=== PATIENT | female | born 1940 | race Caucasian/White ===

== ENCOUNTER 2017-04-27 09:47 | Day surgery (SDC) | payer MEDICARE, BC ==
[~2017-04-27 09:47] MED LIST: Lactated Ringers 1,000 ML IV SCH
[2017-04-27] MEDS ORDERED: fentaNYL 100 MCG/2 ML SDV ONE (11:40)
[2017-04-27] MEDS ORDERED: Propofol 200 MG/20 ML SDV ONE (11:40)
--- NOTE | 2017-04-27 19:48 | OR ---
PREOPERATIVE DIAGNOSIS: Screening colonoscopy. POSTOPERATIVE DIAGNOSIS: Mild sigmoid diverticulosis, otherwise, normal exam. PROCEDURE PROPOSED: Total flexible colonoscopy. PROCEDURE DONE: Total flexible colonoscopy. INDICATIONS: This is a 77-year-old female who comes in for screening colonoscopy. Her last examination was about 10 years ago. She denies any symptomatology, and she has a negative family history. TECHNIQUE: The patient was brought to the endoscopy suite and placed in left lateral decubitus position. She was sedated per CHIEF INFORMATION SECURITY OFFICER with propofol. The flexible video colonoscope was then passed transanally and under visualization advanced to the cecum. Examination revealed a normal cecal area as well as ascending and transverse colon. Descending colon was normal. The sigmoid colon revealed mild diverticulosis, and the rectum was normal. There were no signs of any polyps, colitis, or other abnormalities and the scope was then withdrawn. The patient tolerated the procedure well. FINAL IMPRESSION: Sigmoid diverticulosis, otherwise, normal exam. PLAN: The patient is reassured. I felt at her age, she does not need any further screening colonoscopies. SCM: 04/27/2017 13:02:15 MODL: 04/27/2017 19:38:32 /[id number]
== END 2017-04-27 14:46 | disposition home or self-care (01) ==
LOC: VM.SDS 09:47
PROVIDERS: ATTEND Surgery
DX: Z12.11 Encounter for screening for malignant neoplasm of colon (principal); K57.30 Diverticulosis of large intestine without perforation or abscess without bleeding; E78.00 Pure hypercholesterolemia, unspecified; M54.17 Radiculopathy, lumbosacral region
CPT/HCPCS: 00812; J2704; J3010; J7120

== ENCOUNTER 2019-10-05 08:54 | Day surgery (SDC) | payer MEDICARE, BC, OTHER ==
[2019-10-05] MEDS ORDERED: Propofol 200 MG/20 ML SDV ONE (09:19)
[2019-10-05] MEDS ORDERED: fentaNYL 100 MCG/2 ML SDV ONE (09:19)
--- NOTE | 2019-10-06 08:40 | OR ---
PREOPERATIVE DIAGNOSIS: Dysphagia. POSTOPERATIVE DIAGNOSIS: Dysphagia. PROCEDURE PERFORMED: Esophagogastroduodenoscopy with dilation of distal esophagus. ANESTHESIA: MAC anesthesia. COMPLICATIONS: None. BLOOD LOSS: Minimal. FINDINGS: 1. There is mild narrowing of the distal esophagus. This is dilated to 19 mm. 2. There was some prominent tissue at the GE junction, which did not appear gross, did not appear fairly abnormal, but was a bit more problem than is typical. Given her symptoms, I took a couple biopsies of this. 3. The rest of the esophagus was normal in appearance. Random biopsies were taken to evaluate for eosinophilic esophagitis. INDICATIONS FOR PROCEDURE: Sara Cancino is a 79-year-old female who for about 3 years has had intermittent dysphagia where food gets stuck in her lower chest. This happens particularly with meat if she takes a large bite and does not chew well. If she is careful about taking smaller bites and chewing thoroughly, she does not have symptoms. She denies reflux. When the food gets stuck, she has to regurgitate it and then she feels better. She has never had a prior EGD. DETAILS OF PROCEDURE: After informed consent was obtained, the patient was brought to the procedure room. She was placed in left lateral decubitus position. MAC anesthesia was induced by Anesthesia colleagues and then a bite block was placed. The endoscope was introduced into the mouth, passed through the upper esophageal sphincter down the esophagus into the stomach. We did not have trouble passing the scope through the esophagus, but there was perhaps mild narrowing of the distal esophagus. The pylorus was intubated and the duodenum was examined. The first and second portions of the duodenum were unremarkable. The antrum and body of the stomach were unremarkable. A retroflexed view showed Hill grade 2 hiatus without any abnormalities in the proximal portion of the stomach. We then withdrew the scope back into the esophagus. The distal esophagus was perhaps mildly narrowed, but there was not a clear Schatzki ring. We did not see anything look like a malignancy, but there was some prominent tissue at the GE junction which was biopsied. We then used a balloon dilator to dilate the distal esophagus to 19 mm. There was a small mucosal break noted without any evidence of full-thickness tear. The colonoscope was then withdrawn. Esophagus was examined, which was unremarkable. Random biopsies were taken to evaluate for eosinophilic esophagitis. We then desufflated the stomach. The patient tolerated the procedure well, was awoken from MAC anesthesia by Anesthesia colleagues without incident. 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 This may help direct future therapy of dysphagia resolves and then recurrs. -Esophageal eosinophilia is less than what is typically see in eosinophilic esophagitis. More consistent with reflux. Would consider starting a PPI (if not already one). -The other consideration is esophageal dysfunction as her distal narrowing was not as pronounced as is seen in some patients with dysphagia. If she had no improvement after dilation could consider esophageal manometry or GI consultation. RKM: 10/05/2019 11:43:46 MODL: 10/05/2019 15:55:29 /[id number] ADAN
--- NOTE | 2019-10-10 10:25 | LETTER ---
10/07/2019 RE: SARA HORNER : 1940 Sara Horner [id number] [place] [address] [place] [id number] Dear Ms. Horner: I am writing to inform you of the pathology results of your recent upper endoscopy. We took some biopsies of your esophagus, all of which were negative for any cancer cells. You did have some cells called eosinophils within your esophagus. This is a cell that sometimes is involved in a condition called eosinophilic esophagitis, which can cause some difficulty swallowing. However, you did not have as many eosinophiles as is typically seen in patients with the eosinophilic esophagitis. The amount you had is more consistent with just gastroesophageal reflux disease. If you are not already on an antacid medication, I recommend you discuss the benefits of starting 1 with your primary care physician. If you had resolution of your trouble swallowing after we dilated your esophagus, we would expect that that was the source of your symptoms. However, if you do not feel any better, it is also possible your esophagus muscle does not function as well as it should. You can discuss further workup with a test to measure how well your esophagus works or a consultation with the GI expert with your primary care provider. Please give me a call if you have any questions about any of this. Warmest regards,
== END 2019-10-05 12:54 | disposition home or self-care (01) ==
LOC: VM.SDS 08:54
PROVIDERS: ATTEND Student in an Organized Health Care Education/Training Program
DX: K22.2 Esophageal obstruction (principal); K20.0 Eosinophilic esophagitis; I51.89 Other ill-defined heart diseases; M81.0 Age-related osteoporosis without current pathological fracture; E66.9 Obesity, unspecified; I83.893 Varicose veins of bilateral lower extremities with other complications; E78.5 Hyperlipidemia, unspecified; K44.9 Diaphragmatic hernia without obstruction or gangrene; E78.00 Pure hypercholesterolemia, unspecified; D64.9 Anemia, unspecified; G25.81 Restless legs syndrome; F51.01 Primary insomnia; K21.0 Gastro-esophageal reflux disease with esophagitis; N81.11 Cystocele, midline; I45.10 Unspecified right bundle-branch block; K57.30 Diverticulosis of large intestine without perforation or abscess without bleeding; S39.012D Strain of muscle, fascia and tendon of lower back, subsequent encounter; N39.46 Mixed incontinence; J30.1 Allergic rhinitis due to pollen; M54.17 Radiculopathy, lumbosacral region; K59.01 Slow transit constipation; Z01.812 Encounter for preprocedural laboratory examination; Z20.828 Contact with and (suspected) exposure to other viral communicable diseases; Z79.899 Other long term (current) drug therapy; Z68.36 Body mass index [BMI] 36.0-36.9, adult; X58.XXXD Exposure to other specified factors, subsequent encounter
CPT/HCPCS: 00731; 43239; 43249; 88305; C1726; J2704; J3010; J7120; U0002

== ENCOUNTER 2020-09-24 10:56 | Emergency (ER) | payer MEDICARE, BC ==
--- NOTE | 2020-09-24 11:12 | EDM.PDOC ---
ED HPI GENERAL MEDICAL PROBLEM - General Stated Complaint: syncope, neck pain Time Seen by Provider: 09/24/20 11:00 Source of Information: Reports: Patient, EMS, EMS Notes Reviewed History Limitations: Reports: No Limitations - History of Present Illness INITIAL COMMENTS - FREE TEXT/NARRATIVE: Patient was at home getting a perm. She had been sitting for a long period of time and arose to check on her food cooking. She states she felt fine and made it part ways across the kitchen and suddenly passed out. She denied any dizziness of chest pain prior. She was with other people and they witnessed her hitting her head on the counter. She was unconscious and slumped over for 1-2 minutes. She came around and became lucid quickly. No loss of urine. Complained of neck pain. EMS was called. Collar applied, alert and orientate x 4, blood glucose >100. Not on blood thinners. arrives alert and moving al extremities in a c collar. History of syncope in the past. Onset: Today, Sudden Onset Time: 10:15 Duration: Minutes:, Resolved Prior to Arrival Location: Reports: Head, Neck Improves with: Reports: None Worsens with: Reports: Movement (c collar in place) Associated Symptoms: Reports: Syncope - Related Data Allergies Allergy/AdvReac Type Severity Reaction Status Date / Time No Known Allergies Allergy Verified 05/10/18 10:50 Home Meds: Home Meds Calcium Carbonate/Vitamin D3 [Caltrate 600 + D Soft Chew Tab] 1 tab PO DAILY 04/24/17 [History] Docusate Sodium [Colace] 100 mg PO BID 04/24/17 [History] Fish Oil/[place]-3 Fatty Acids [Fish Oil 1,000 MG] 1,000 mg PO DAILY 04/24/17 [History] Flaxseed 3 tsp PO DAILY 04/24/17 [History] Gabapentin [Neurontin] 600 mg PO BID 04/24/17 [History] Ibuprofen [Motrin] 600 mg PO Q6H 04/24/17 [History] Multivitamin [Multivitamins] 1 tab PO DAILY 04/24/17 [History] Simvastatin [Zocor] 10 mg PO BEDTIME 04/24/17 [History] Fluticasone Propionate [Flonase] 1 spray NS BID PRN 09/14/19 [History] Oxybutynin Chloride [Ditropan Xl] 10 mg PO DAILY 09/14/19 [History] Cyclobenzaprine [Flexeril] 5 mg PO Q8H PRN #15 tab 09/24/20 [Rx] Hydrocodone/Acetaminophen [HYDROcodone-Acetaminophen 5-325 MG] 1 each PO Q6HR PRN #15 tab 09/24/20 [Rx] Past Medical History HEENT History: Reports: Allergic Rhinitis, Cataract Cardiovascular History: Reports: High Cholesterol, Other (See Below) Other Cardiovascular History: RBBB. bilat LE vericose veins Respiratory History: Reports: None Gastrointestinal History: Reports: Chronic Constipation, Diverticulosis, GERD Genitourinary History: Reports: Other (See Below) Other Genitourinary History: cystocele Musculoskeletal History: Reports: Osteoporosis, Other (See Below) Other Musculoskeletal History: pelvic and thigh pain. low back strain. mallet deformity of second rt finger. L3 compression fx. bilat SI pain. myalgia Neurological History: Reports: Other (See Below) Other Neuro History: rt lumbosacral rediculopathy. RLS. balance problems Psychiatric History: Reports: Other (See Below) Other Psychiatric History: insomnia Endocrine/Metabolic History: Reports: Obesity/BMI 30+ Hematologic History: Reports: Anemia Immunologic History: Reports: None Oncologic (Cancer) History: Reports: None Dermatologic History: Reports: None - Past Surgical History GI Surgical History: Reports: Colonoscopy Female Surgical History: Reports: Hysterectomy, LEEP, Tubal Ligation Social & Family History - Family History Cardiac: Reports: Hypertension : Reports: Other (See Below) Other Family History: prostate cancer Musculoskeletal: Reports: Osteoporosis Neurological: Reports: Alzheimers Disease Psychiatric: Reports: Depression Oncologic: Reports: Prostate - Caffeine Use Caffeine Use: Reports: Coffee - Recreational Drug Use Recreational Drug Use: No Drug Use in Last 12 Months: No - Living Situation & Occupation Living situation: Reports: , with Spouse 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 Good social network.) ED ROS GENERAL - Review of Systems Review Of Systems: See Below Constitutional: Reports: No Symptoms. Denies: Fever, Chills, Malaise, Fatigue HEENT: Reports: No Symptoms. Denies: Dental Pain, Eye Pain, Nosebleed Respiratory: Reports: No Symptoms. Denies: Shortness of Breath, Pleuritic Chest Pain, Cough Cardiovascular: Reports: Syncope. Denies: Chest Pain, Dyspnea on Exertion, Lightheadedness Endocrine: Reports: No Symptoms GI/Abdominal: Reports: No Symptoms. Denies: Abdominal Pain, Diarrhea, Flatus, Melena, Nausea, Vomiting : Reports: No Symptoms. Denies: Dysuria, Frequency Musculoskeletal: Reports: Neck Pain Skin: Reports: No Symptoms Neurological: Reports: Headache, Syncope. Denies: Confusion, Dizziness, Numbness, Tremors Psychiatric: Reports: No Symptoms - Physical Exam Exam: See Below Exam Limited By: No Limitations General Appearance: Alert, WD/WN, No Apparent Distress Eye Exam: Bilateral Eye: EOMI, Normal Inspection, PERRL Ears: Normal External Exam, Normal Canal, Normal TMs Nose: Normal Inspection, Normal Mucosa, No Blood Throat/Mouth: Normal Inspection, Normal Lips, Normal Teeth, Normal Oropharynx, Normal Voice, No Airway Compromise Head Exam: Normocephalic, Other (tenderness to palpation in the occipital area, limited due to c collar, not removed prior to CT) Neck: Tender Lateral, Tender Midline, Other (in c collar) Respiratory/Chest: No Respiratory Distress, Lungs Clear, Normal Breath Sounds, No Accessory Muscle Use, Chest Non-Tender Cardiovascular: Normal Peripheral Pulses, Regular Rate, Rhythm, No Edema, No Murmur GI/Abdominal: Normal Bowel Sounds, Soft, Non-Tender, No Organomegaly, No Mass (Female) Exam: Deferred Neuro Exam (Abbreviated): Alert, Oriented, CN II-XII Intact, Normal Cognition, No Motor/Sensory Deficits (normal ggrip strength bilateraly, negative pronator drift, normal finger to nose with eyes closed, normal TREVON, normal heel to bob, moves all extermities without deficit) Extremities: Normal Inspection, Normal Range of Motion, No Pedal Edema, Normal Capillary Refill Psychiatric: Normal Affect, Normal Mood Skin Exam: Warm #1 Interpretation EKG Date: 09/24/20 Time: 11:02 Rhythm: NSR [place]: Normal P-Wave: Present QRS: RBBB ST-T: Normal QT: Normal Course - Orders/Labs/Meds Orders: Active Orders 24 hr Category Date Time Status EKG Documentation Completion [RC] STAT Care 09/24/20 11:02 Active Labs: Laboratory Tests 09/24/20 09/24/20 Range/Units 11:14 11:14 WBC 5.1 (4.0-10.0) x10^3/uL RBC 4.26 (4.00-5.50) x10^6/uL Hgb 12.5 (12.0-16.0) g/dL Hct 38.3 (33.0-47.0) % MCV 89.9 (78.0-93.0) fL MCH 29.3 (26.0-32.0) pg MCHC 32.6 (32.0-36.0) g/dL RDW Coeff of Emiliano 14.4 (10.0-15.0) % Plt Count 155 (130-400) x10^3/uL Add Manual Diff Yes Neutrophils % (Manual) 69 (50-80) % Band Neutrophils % 3 (0-6) % Lymphocytes % (Manual) 15 L (25-50) % Monocytes % (Manual) 12 H (2-11) % Metamyelocytes % 1 H (0) % Platelet Estimate Adequate Sodium 141 (136-145) mmol/L Potassium 4.2 (3.5-5.1) mmol/L Chloride 105 (98-107) mmol/L Carbon Dioxide 29 (21-32) mmol/L Anion Gap 11.2 (5-15) mmol/L BUN 17 (7-18) mg/dL Creatinine 0.9 (0.55-1.02) mg/dL Est Cr Clr Drug Dosing TNP Estimated GFR (MDRD) > 60 Glucose 118 H (70-99) mg/dL Calcium 8.5 (8.5-10.1) mg/dL Corrected Calcium 9.3 (8.5-10.1) mg/dL Total Bilirubin 0.5 (0.2-1.0) mg/dL AST 16 (15-37) U/L ALT 21 (14-59) U/L Alkaline Phosphatase 80 (46-116) U/L Troponin I High Sens 5 (<=51) ng/L Total Protein 6.1 L (6.4-8.2) g/dL Albumin 3.0 L (3.4-5.0) g/dL Globulin 3.1 Albumin/Globulin Ratio 0.97 - Radiology Interpretation Free Text/Narrative:: ct head without any acute findings. CT neck without acute fracture or subluxation. 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 CT head and neck. EKG no acute change. Will check labs, has history of syncope. 09/24/20 12:28 c collar removed. Discussed vasovagal, versus arrythmia and need to follow up with holter monitoring. Can due with PCP. Discussed muscle stiffness and soreness. walked the hallways without problems. Departure - Departure Time of Disposition: 12:29 Disposition: Home, Self-Care 01 Condition: Good Clinical Impression: Syncope, Neck pain - Discharge Information *PRESCRIPTION DRUG MONITORING PROGRAM REVIEWED*: Not Applicable *COPY OF PRESCRIPTION DRUG MONITORING REPORT IN PATIENT NGOZI: Not Applicable Prescriptions: Cyclobenzaprine [Flexeril] 5 mg PO Q8H PRN #15 tab PRN Reason: Spasms Hydrocodone/Acetaminophen [HYDROcodone-Acetaminophen 5-325 MG] 1 each PO Q6HR PRN #15 tab PRN Reason: Pain Instructions: Syncope, [id number], Cervical Sprain, [id number] Additional Instructions: use the pain medication and muscle relaxer as needed. Heat, stretching and movement along with massage will help. These medications may cause constipation. Follow up with your PCP for possible holter monitoring as the passing out could be due to changing positions too quickly or heart rhythm problems. Take your time when you change positions from laying to sitting to standing. - My Orders Last 24 Hours: My Active Orders 09/24/20 11:02 EKG Documentation Completion [RC] STAT - Assessment/Plan Last 24 Hours: My Active Orders 09/24/20 11:02 EKG Documentation Completion [RC] STAT
[2020-09-24 11:42] LABS: CHLORIDE,CL 105 mmol/L (98-107); SODIUM,NA 141 mmol/L (136-145)
[2020-09-24 11:45] LABS: ANION GAP 11.2 mmol/L (5-15)
--- NOTE | 2020-09-24 12:17 | CT ---
[id number] CT/CT Head WO IV EXAM: CT Head WO IV CLINICAL DATA: FALL,NECK PAIN. COMPARISON STUDY: July 22, 2019. FINDINGS: No intracranial hemorrhage, extra-axial fluid collection, mass, or acute ischemia. Generalized parenchymal atrophy with scattered areas of nonspecific white matter disease, commonly seen as sequela of chronic microvascular ischemia. Soft tissues are unremarkable. Paranasal sinuses and mastoid air cells are essentially clear. IMPRESSION: No acute intracranial findings. Sunil Lazo DO 09/24/20 [id number] Thank you for allowing us to participate in the care of your patient.
--- NOTE | 2020-09-24 12:18 | CT ---
[id number] CT/CT Cervical Spine WO IV Exam: CT Cervical Spine WO IV CLINICAL DATA: FALL, NECK PAIN. COMPARISON: None. FINDINGS: No fracture or subluxation is seen. The C1-C2 articulation is unremarkable. The prevertebral soft tissues are within normal limits. Multilevel degenerative changes of the cervical spine including loss of disc space height, osteophytosis and facet arthropathy. Findings are most pronounced at C5-C6. IMPRESSION: NO ACUTE FRACTURE OR SUBLUXATION. Sunil Lazo DO 09/24/20 1230 Thank you for allowing us to participate in the care of your patient.
== END 2020-09-24 12:47 | disposition home or self-care (01) ==
LOC: VM.ED 10:56
DX: R55 Syncope and collapse (principal); M54.2 Cervicalgia
CPT/HCPCS: 36415; 70450; 72125; 80053; 84484; 85025; 93005; 93010; 99284

== ENCOUNTER 2020-09-24 15:53 | Inpatient (IN) | payer MEDICARE, BC ==
[2020-09-24] MEDS ORDERED: Iopamidol 755 Mg/ML 100 ML Bottle IVPUSH ONE (16:09)
--- NOTE | 2020-09-24 16:40 | EDM.PDOC ---
ED HPI GENERAL MEDICAL PROBLEM - General Chief Complaint: Cardiovascular Problem Stated Complaint: SYNCOPE Time Seen by Provider: 09/24/20 16:15 Source of Information: Reports: Patient History Limitations: Reports: No Limitations - History of Present Illness INITIAL COMMENTS - FREE TEXT/NARRATIVE: Patient returns to the Ed for another episode of syncope. Patient was seen earlier today for this and evaluated with head non contrast ct and neck ct along with labs. Patient had normal results, felt better and went home. while at home she changed positions and was near family, had another syncopal episode and they caught her. No seizure activity and no urinary incontinence. They called EMS. Patient declined transport at EMS arrival. Family was insistent. EMs did check a blood sugar and it was greater than 100. orthostatic blood pressures were 130 laying, 120 sitting and 70 standing. No change in heart rate with these vitals. Patient is otherwise feeling fine. Has had her covid 19 vaccines Onset: Today ( x 2) Duration: Minutes:, Resolved Prior to Arrival Treatments [employer]: Reports: EKG, IV/IO - Related Data Allergies Allergy/AdvReac Type Severity Reaction Status Date / Time No Known Allergies Allergy Verified 09/24/20 16:15 Home Meds: Home Meds Calcium Carbonate/Vitamin D3 [Caltrate 600 + D Soft Chew Tab] 1 tab PO DAILY 04/24/17 [History] Docusate Sodium [Colace] 100 mg PO BID 04/24/17 [History] Fish Oil/[place]-3 Fatty Acids [Fish Oil 1,000 MG] 1,000 mg PO DAILY 04/24/17 [History] Flaxseed 3 tsp PO DAILY 04/24/17 [History] Gabapentin [Neurontin] 600 mg PO BID 04/24/17 [History] Ibuprofen [Motrin] 600 mg PO Q6H 04/24/17 [History] Multivitamin [Multivitamins] 1 tab PO DAILY 04/24/17 [History] Simvastatin [Zocor] 10 mg PO BEDTIME 04/24/17 [History] Fluticasone Propionate [Flonase] 1 spray NS BID PRN 09/14/19 [History] Oxybutynin Chloride [Ditropan Xl] 10 mg PO DAILY 09/14/19 [History] Cyclobenzaprine [Flexeril] 5 mg PO Q8H PRN #15 tab 09/24/20 [Rx] Hydrocodone/Acetaminophen [HYDROcodone-Acetaminophen 5-325 MG] 1 each PO Q6HR PRN #15 tab 09/24/20 [Rx] Past Medical History HEENT History: Reports: Allergic Rhinitis, Cataract Cardiovascular History: Reports: High Cholesterol, Other (See Below) (orthostatic syncope) Other Cardiovascular History: RBBB. bilat LE vericose veins Respiratory History: Reports: None Gastrointestinal History: Reports: Chronic Constipation, Diverticulosis, GERD Genitourinary History: Reports: Other (See Below) Other Genitourinary History: cystocele Musculoskeletal History: Reports: Osteoporosis, Other (See Below) Other Musculoskeletal History: pelvic and thigh pain. low back strain. mallet deformity of second rt finger. L3 compression fx. bilat SI pain. myalgia Neurological History: Reports: Other (See Below) Other Neuro History: rt lumbosacral rediculopathy. RLS. balance problems Psychiatric History: Reports: Other (See Below) Other Psychiatric History: insomnia Endocrine/Metabolic History: Reports: Obesity/BMI 30+ Hematologic History: Reports: Anemia Immunologic History: Reports: None Oncologic (Cancer) History: Reports: None Dermatologic History: Reports: None - Past Surgical History Head Surgeries/Procedures: Reports: None HEENT Surgical History: Reports: None Cardiovascular Surgical History: Reports: None GI Surgical History: Reports: Colonoscopy Female Surgical History: Reports: Hysterectomy, LEEP, Tubal Ligation Musculoskeletal Surgical History: Reports: None Oncologic Surgical History: Reports: None Social & Family History - Family History Cardiac: Reports: Hypertension : Reports: Other (See Below) Other Family History: prostate cancer Musculoskeletal: Reports: Osteoporosis Neurological: Reports: Alzheimers Disease Psychiatric: Reports: Depression Oncologic: Reports: Prostate - Caffeine Use Caffeine Use: Reports: Coffee - Living Situation & Occupation Living situation: Reports: , with Spouse 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 Good social network.) ED ROS GENERAL - Review of Systems Review Of Systems: See Below Constitutional: Reports: No Symptoms HEENT: Reports: No Symptoms. Denies: Rhinitis, Throat Swelling Respiratory: Reports: No Symptoms. Denies: Shortness of Breath, Cough, Hemoptysis Cardiovascular: Reports: Syncope. Denies: Chest Pain, Dyspnea on Exertion, Edema, Lightheadedness Endocrine: Reports: No Symptoms GI/Abdominal: Reports: No Symptoms. Denies: Abdominal Pain, Black Stool, Nausea, Vomiting Musculoskeletal: Reports: Neck Pain (from previous fall today) Skin: Reports: No Symptoms Neurological: Reports: Syncope. Denies: Seizure, Tremors, Trouble Speaking ED EXAM, GENERAL - Physical Exam Exam: See Below Exam Limited By: No Limitations General Appearance: Alert, WD/WN, No Apparent Distress Eye Exam: Bilateral Eye: EOMI, Normal Inspection, PERRL Ears: Normal External Exam, Normal Canal Nose: Normal Inspection, Normal Mucosa, No Blood. No: Nasal Deformity Throat/Mouth: Normal Inspection, Normal Lips, Normal Teeth, Normal Voice Head: Atraumatic, Normocephalic Neck: Supple, Limited Range of Motion, Tender Lateral Respiratory/Chest: No Respiratory Distress, Lungs Clear, Normal Breath Sounds, No Accessory Muscle Use, Crackles Cardiovascular: Normal Peripheral Pulses, Regular Rate, Rhythm, No Murmur, No Rub GI/Abdominal: Normal Bowel Sounds, Soft, Non-Tender, No Abnormal Bruit Extremities: Normal Inspection, Normal Range of Motion, Normal Capillary Refill Neurological: Alert, Oriented, CN II-XII Intact, Normal Cognition, Normal Gait (normal speech, normal finger to nose with eyes closed, normal stength upper and lower extremities, normal heel to bob. ), No Motor/Sensory Deficits Psychiatric: Normal Affect, Normal Mood Skin Exam: Warm #1 Interpretation EKG Date: 09/24/20 Time: 16:01 Rhythm: NSR [place]: Normal QRS: RBBB ST-T: Normal QT: Normal Comparison: No Change Course - Vital Signs Last Recorded V/S: Last Vital Signs Temp 36.9 C 09/24/20 15:55 Pulse 62 09/24/20 17:58 Resp 21 H 09/24/20 17:58 BP 141/65 H 09/24/20 17:58 Pulse Ox 97 09/24/20 17:58 Vital Signs (72 hours) 09/24/20 09/24/20 15:55 17:58 Temperature [ 36.9 C Temporal] Pulse, 72 62 Peripheral [ Left Pulse Oximetry] Respiratory 16 21 H Rate Blood Pressure 122/58 L 141/65 H [Right Arm] O2 Sat by Pulse 96 97 Oximetry - Orders/Labs/Meds Orders: Active Orders 24 hr Category Date Time Status Cardiac Monitoring [RC] . DIRECTED Care 09/24/20 16:19 Active Nurse Communication: Isolation [RC] ASDIRECTED Care 09/24/20 17:45 Active Ang Neck [CT] Stat Exams 09/24/20 16:09 Ordered Sodium Chloride 0.9% [Normal Saline] 1,000 ml Med 09/24/20 16:45 Active IV ASDIRECTED Isolation [COMM] Routine Oth 09/24/20 17:45 Ordered Medication Orders Sodium Chloride (Normal Saline) 1,000 mls @ 1,000 mls/hr IV ASDIRECTED AMANDA Last Admin: 09/24/20 17:45 Dose: 1,000 mls/hr Documented by: GRISELDA Labs: Laboratory Tests 09/24/20 09/24/20 09/24/20 Range/Units 11:14 16:18 17:56 TSH, Ultra Sensitive 1.473 (0.358-3.74) uIU/mL Urine Color Yellow (YELLOW) Urine Appearance Clear (CLEAR) Urine pH 7.0 (5.0-8.0) Ur Specific [place] 1.015 Urine Protein Negative (NEGATIVE) mg/dL Urine Glucose (UA) Negative (NEGATIVE) mg/dL Urine Ketones Negative (NEGATIVE) mg/dL Urine Occult Blood Negative (NEGATIVE) Urine Nitrite Negative (NEGATIVE) Urine Bilirubin Negative (NEGATIVE) Urine Urobilinogen 0.2 (0.2) EU/dL Ur Leukocyte Esterase Negative (NEGATIVE) SARS CoV-2 RNA Rapid DAWN Positive H (NEGATIVE) Meds: Medications Generic Name Dose Route Start Last Admin Trade Name Freq PRN Reason Stop Dose Admin Sodium Chloride 1,000 mls @ 1,000 mls/hr 09/24/20 16:45 09/24/20 17:45 Normal Saline IV 1,000 mls/hr ASDIRECTED AMANDA Administration Discontinued Medications Generic Name Dose Route Start Last Admin Trade Name Freq PRN Reason Stop Dose Admin Iopamidol 100 ml 09/24/20 16:09 09/24/20 17:17 Iopamidol 755 Mg/Ml 100 Ml Bottle IVPUSH 09/24/20 16:10 100 ml ONETIME ONE Administration - Radiology Interpretation Free Text/Narrative:: head and neck angiography normal, no acute change. chest x-ray no acute process, interpreted by Radiology - Re-Assessments/Exams Free Text/Narrative Re-Assessment/Exam: 09/24/20 16:00 good blood pressure laying down and no symptoms. 500 cc NS infused. will check ct angio head and neck, add a tsh and keep her overnight for monitoring. holter monitor in place. See ER note from earlier today COVID 19 is positive. precautions started. large exposures at home. 09/24/20 18:08 second liter of normal saline started. Feeling fine. Will admit for orthostatic hypotension, hydration and monitoring. isolation precautions in place. Negative head and neck angio/ Departure - Departure Time of Disposition: 18:10 Disposition: Refer to Observation Clinical Impression: Syncope, COVID-19 Forms: ED Department Discharge Additional Instructions: Please use the ER note for admission H & P Sepsis Event Note (ED) - Evaluation Sepsis Screening Result: No Definite Risk - Focused Exam Vital Signs: Vital Signs Temp Pulse Resp BP Pulse Ox 09/24/20 17:58 62 21 H 141/65 H 97 09/24/20 15:55 36.9 C 72 16 122/58 L 96 - My Orders Last 24 Hours: My Active Orders 09/24/20 16:09 Ang Neck [CT] Stat 09/24/20 16:19 Cardiac Monitoring [RC] . DIRECTED 09/24/20 16:45 Sodium Chloride 0.9% [Normal Saline] 1,000 ml IV ASDIRECTED 09/24/20 17:45 Nurse Communication: Isolation [RC] ASDIRECTED Isolation [COMM] Routine - Assessment/Plan Last 24 Hours: My Active Orders 09/24/20 16:09 Ang Neck [CT] Stat 09/24/20 16:19 Cardiac Monitoring [RC] . DIRECTED 09/24/20 16:45 Sodium Chloride 0.9% [Normal Saline] 1,000 ml IV ASDIRECTED 09/24/20 17:45 Nurse Communication: Isolation [RC] ASDIRECTED Isolation [COMM] Routine
[2020-09-24] MEDS ORDERED: Sodium Chloride 0.9% 1,000 ML IV SCH (16:45)
--- NOTE | 2020-09-24 17:57 | CR ---
[id number] RAD/RAD Chest PA or AP 1V EXAM: RAD Chest PA or AP 1V INDICATION: COVID 19 COMPARISON: July 22, 2019. DISCUSSION/IMPRESSION: Cardiomediastinal silhouette is normal in size and contour. Lungs are clear. No pleural effusion or pneumothorax. Sameer Patiño MD 09/24/20 [id number] Thank you for allowing us to participate in the care of your patient.
--- NOTE | 2020-09-24 18:02 | CT ---
[id number] CT/CTA Head Neck EXAM: CT angiogram head and neck INDICATION: SYNCOPE. COMPARISON: CT head from today. DISCUSSION: Aortic arch: The partially imaged aortic arch is normal in caliber with a conventional branching morphology. Right carotid artery: Normal in caliber. No significant stenosis or other abnormality. Left carotid artery: Normal in caliber. No significant stenosis or other abnormality. Right vertebral artery: Normal in caliber. No significant stenosis or other abnormality. Left vertebral artery: Normal in caliber. No significant stenosis or other abnormality. Basilar artery: Normal in caliber. No significant stenosis or other abnormality. [place]: Conventional morphology. No vessel cut off, significant stenosis, aneurysm or vascular malformation is identified. Dural sinuses, jugular veins and cerebral veins: Limited evaluation of the cerebral veins, dural sinuses and jugular veins is unremarkable. Brain parenchyma: Unremarkable. Neck soft tissues: Unremarkable. Osseous structures: Cervical spondylosis. Findings include advanced degenerative disc disease at C5-6 and C6-7. IMPRESSION: Normal angiographic examination of the head and neck. Other findings are described above. Sameer Patiño MD 09/24/20 1800 Thank you for allowing us to participate in the care of your patient.
[2020-09-24] MEDS ORDERED: Ondansetron 4 MG Tab.DIS PO PRN (19:35)
[2020-09-24] MEDS: Simvastatin 10 MG Tab PO SCH (20:54)
[2020-09-24] MEDS: Gabapentin 300 MG Cap PO SCH (20:54)
[2020-09-25] MEDS: Acetaminophen 325 MG Tab PO PRN (07:08)
[2020-09-25 07:25] LABS: CHLORIDE,CL 107 mmol/L (98-107); SODIUM,NA 141 mmol/L (136-145)
[2020-09-25 07:28] LABS: ANION GAP 9.9 mmol/L (5-15)
[2020-09-25] MEDS ORDERED: Albuterol HFA 18 Gm Inhaler INH PRN (07:59)
[2020-09-25] MEDS ORDERED: Enoxaparin 40 MG/0.4 ML Syringe SUBCUT SCH (08:00)
[2020-09-25 08:32] LABS: BICARBONATE,ARTERIAL 23 mmol/L (21-28); PCO2 ARTERIAL 35 mmHG (35-48); PO2 ARTERIAL 70 mmHG (83-108)
[2020-09-25 08:33] LABS: BASE EXCESS ARTERIAL -1 mmol/L ((-2)-(+3))
[2020-09-25] MEDS ORDERED: REMDESIVIR 200 MG in Sodium Chloride 0.9% 250 ML IV ONE (09:01)
[2020-09-25] MEDS: Gabapentin 300 MG Cap PO SCH ×3 (09:09→20:15)
[2020-09-25] MEDS: dexAMETHasone 2 MG, dexAMETHasone 4 MG PO SCH ×2 (09:09)
[2020-09-25] MEDS ORDERED: Iopamidol 755 Mg/ML 100 ML Bottle IVPUSH ONE (10:00)
--- NOTE | 2020-09-25 12:17 | PCM.PN ---
- General Info Date of Service: 09/25/20 Admission Dx/Problem (Free Text): syncope, covid 19 Subjective Update: Patient was admitted overnight for syncope x 2 yesterday with orthostatic hypotension. She was diagnosed with Covid 19 after vaccination. She started to have hypoxia overnight. She did have sats of 88% over night. AT rest sitting upright she is 92%. Feels more short of breath, increased cough and malaise. Eating, no fevers Functional Status: Reports: Tolerating Diet, New Symptoms - Review of Systems General: Reports: Fatigue. Denies: Fever, Night Sweats HEENT: Denies: Headaches, Post Nasal Drip, Sore Throat, Rhinitis Pulmonary: Reports: Shortness of Breath, Cough Cardiovascular: Reports: Dyspnea on Exertion. Denies: Chest Pain, Palpitations, Orthopnea Gastrointestinal: Denies: Abdominal Pain, Melena, Nausea Genitourinary: Denies: Dysuria, Burning, Urgency Musculoskeletal: Denies: Neck Pain, Shoulder Pain, Back Pain Skin: Denies: Jaundice Neurological: Denies: Confusion, Headache, Numbness, Trouble Speaking - Patient Data Vitals - Most Recent: Last Vital Signs Temp 36.8 C 09/25/20 07:38 Pulse 76 09/25/20 05:16 Resp 18 09/25/20 05:16 BP 111/48 L 09/25/20 05:16 Pulse Ox 92 L 09/25/20 05:19 Orthostatic Blood Pressure [ 95/62 Standing] Orthostatic Blood Pressure [ 122/65 Sitting] Orthostatic Blood Pressure [ 114/57 Supine] Weight - Most Recent: 86.183 kg I&O - Last 24 Hours: Intake & Output 09/24/20 09/25/20 09/25/20 22:59 06:59 14:59 Intake Total 300 100 Output Total 225 Balance 300 -125 Lab Results Last 24 Hours: Laboratory Results - last 24 hr 09/24/20 09/24/20 09/24/20 Range/Units 11:14 16:18 17:56 WBC (4.0-10.0) x10^3/uL RBC (4.00-5.50) x10^6/uL Hgb (12.0-16.0) g/dL Hct (33.0-47.0) % MCV (78.0-93.0) fL MCH (26.0-32.0) pg MCHC (32.0-36.0) g/dL RDW Coeff of Emiliano (10.0-15.0) % Plt Count (130-400) x10^3/uL ABG pH (7.35-7.45) pH ABG pCO2 (35-48) mmHG ABG pO2 (83-108) mmHG ABG HCO3 (21-28) mmol/L ABG Total CO2 (22-29) mmol/L ABG O2 Content (94-98) % ABG Base Excess ((-2)-(+3)) mmol/L FiO2 Sodium (136-145) mmol/L Potassium (3.5-5.1) mmol/L Chloride (98-107) mmol/L Carbon Dioxide (21-32) mmol/L Anion Gap (5-15) mmol/L BUN (7-18) mg/dL Creatinine (0.55-1.02) mg/dL Est Cr Clr Drug Dosing mL/min Estimated GFR (MDRD) Glucose (70-99) mg/dL Calcium (8.5-10.1) mg/dL Total Bilirubin (0.2-1.0) mg/dL Direct Bilirubin (0.00-0.20) mg/dL Indirect Bilirubin AST (15-37) U/L ALT (14-59) U/L Alkaline Phosphatase (46-116) U/L Troponin I High Sens (<=51) ng/L Total Protein (6.4-8.2) g/dL Albumin (3.4-5.0) g/dL Globulin Albumin/Globulin Ratio TSH, Ultra Sensitive 1.473 (0.358-3.74) uIU/mL Urine Color Yellow (YELLOW) Urine Appearance Clear (CLEAR) Urine pH 7.0 (5.0-8.0) Ur Specific [place] 1.015 Urine Protein Negative (NEGATIVE) mg/dL Urine Glucose (UA) Negative (NEGATIVE) mg/dL Urine Ketones Negative (NEGATIVE) mg/dL Urine Occult Blood Negative (NEGATIVE) Urine Nitrite Negative (NEGATIVE) Urine Bilirubin Negative (NEGATIVE) Urine Urobilinogen 0.2 (0.2) EU/dL Ur Leukocyte Esterase Negative (NEGATIVE) SARS CoV-2 RNA Rapid DAWN Positive H (NEGATIVE) 09/25/20 09/25/20 09/25/20 Range/Units 06:58 06:58 06:58 WBC 4.7 (4.0-10.0) x10^3/uL RBC 3.99 L (4.00-5.50) x10^6/uL Hgb 11.7 L (12.0-16.0) g/dL Hct 35.8 (33.0-47.0) % MCV 89.7 (78.0-93.0) fL MCH 29.3 (26.0-32.0) pg MCHC 32.7 (32.0-36.0) g/dL RDW Coeff of Emiliano 14.8 (10.0-15.0) % Plt Count 146 (130-400) x10^3/uL ABG pH (7.35-7.45) pH ABG pCO2 (35-48) mmHG ABG pO2 (83-108) mmHG ABG HCO3 (21-28) mmol/L ABG Total CO2 (22-29) mmol/L ABG O2 Content (94-98) % ABG Base Excess ((-2)-(+3)) mmol/L FiO2 Sodium 141 (136-145) mmol/L Potassium 3.9 (3.5-5.1) mmol/L Chloride 107 (98-107) mmol/L Carbon Dioxide 28 (21-32) mmol/L Anion Gap 9.9 (5-15) mmol/L BUN 14 (7-18) mg/dL Creatinine 0.8 (0.55-1.02) mg/dL Est Cr Clr Drug Dosing 48.20 mL/min Estimated GFR (MDRD) > 60 Glucose 103 H (70-99) mg/dL Calcium 8.4 L (8.5-10.1) mg/dL Total Bilirubin 0.5 (0.2-1.0) mg/dL Direct Bilirubin 0.11 (0.00-0.20) mg/dL Indirect Bilirubin 0.39 AST 46 H (15-37) U/L ALT 35 (14-59) U/L Alkaline Phosphatase 64 (46-116) U/L Troponin I High Sens 11 (<=51) ng/L Total Protein 5.3 L (6.4-8.2) g/dL Albumin 2.6 L (3.4-5.0) g/dL Globulin 2.7 Albumin/Globulin Ratio 0.96 TSH, Ultra Sensitive (0.358-3.74) uIU/mL Urine Color (YELLOW) Urine Appearance (CLEAR) Urine pH (5.0-8.0) Ur Specific [place] Urine Protein (NEGATIVE) mg/dL Urine Glucose (UA) (NEGATIVE) mg/dL Urine Ketones (NEGATIVE) mg/dL Urine Occult Blood (NEGATIVE) Urine Nitrite (NEGATIVE) Urine Bilirubin (NEGATIVE) Urine Urobilinogen (0.2) EU/dL Ur Leukocyte Esterase (NEGATIVE) SARS CoV-2 RNA Rapid DAWN (NEGATIVE) 09/25/20 Range/Units 08:25 WBC (4.0-10.0) x10^3/uL RBC (4.00-5.50) x10^6/uL Hgb (12.0-16.0) g/dL Hct (33.0-47.0) % MCV (78.0-93.0) fL MCH (26.0-32.0) pg MCHC (32.0-36.0) g/dL RDW Coeff of Emiliano (10.0-15.0) % Plt Count (130-400) x10^3/uL ABG pH 7.44 (7.35-7.45) pH ABG pCO2 35 (35-48) mmHG ABG pO2 70 L (83-108) mmHG ABG HCO3 23 (21-28) mmol/L ABG Total CO2 24 (22-29) mmol/L ABG O2 Content 95 (94-98) % ABG Base Excess -1 ((-2)-(+3)) mmol/L FiO2 0.21 Sodium (136-145) mmol/L Potassium (3.5-5.1) mmol/L Chloride (98-107) mmol/L Carbon Dioxide (21-32) mmol/L Anion Gap (5-15) mmol/L BUN (7-18) mg/dL Creatinine (0.55-1.02) mg/dL Est Cr Clr Drug Dosing mL/min Estimated GFR (MDRD) Glucose (70-99) mg/dL Calcium (8.5-10.1) mg/dL Total Bilirubin (0.2-1.0) mg/dL Direct Bilirubin (0.00-0.20) mg/dL Indirect Bilirubin AST (15-37) U/L ALT (14-59) U/L Alkaline Phosphatase (46-116) U/L Troponin I High Sens (<=51) ng/L Total Protein (6.4-8.2) g/dL Albumin (3.4-5.0) g/dL Globulin Albumin/Globulin Ratio TSH, Ultra Sensitive (0.358-3.74) uIU/mL Urine Color (YELLOW) Urine Appearance (CLEAR) Urine pH (5.0-8.0) Ur Specific [place] Urine Protein (NEGATIVE) mg/dL Urine Glucose (UA) (NEGATIVE) mg/dL Urine Ketones (NEGATIVE) mg/dL Urine Occult Blood (NEGATIVE) Urine Nitrite (NEGATIVE) Urine Bilirubin (NEGATIVE) Urine Urobilinogen (0.2) EU/dL Ur Leukocyte Esterase (NEGATIVE) SARS CoV-2 RNA Rapid DAWN (NEGATIVE) Med Orders - Current: Current Medications Acetaminophen (Acetaminophen 325 Mg Tab) 650 mg PO Q4H PRN PRN Reason: Pain (Mild 1-3)/fever Last Admin: 09/25/20 07:08 Dose: 650 mg Documented by: Albuterol (Albuterol Hfa 18 Gm Inhaler) 0 gm INH Q4H PRN PRN Reason: Shortness of Breath Dexamethasone 2 mg/ (Dexamethasone 4 mg) 6 mg PO DAILY [facility] Stop: 09/29/20 08:01 Last Admin: 09/25/20 09:09 Dose: 6 mg Documented by: Enoxaparin Sodium (Enoxaparin 40 Mg/0.4 Ml Syringe) 40 mg SUBCUT DAILY [facility] Last Admin: 09/25/20 09:09 Dose: 40 mg Documented by: Gabapentin (Gabapentin 300 Mg Cap) 600 mg PO BEDTIME [facility] Remdesivir 100 mg/ Sodium (Chloride) 100 mls @ 100 mls/hr IV Q24H [facility] Stop: 09/29/20 10:14 Ondansetron HCl (Ondansetron 4 Mg Tab.Dis) 4 mg PO Q4H PRN PRN Reason: nausea, able to take PO Simvastatin (Simvastatin 10 Mg Tab) 10 mg PO BEDTIME [facility] Last Admin: 09/24/20 20:54 Dose: 10 mg Documented by: Discontinued Medications Gabapentin (Gabapentin 300 Mg Cap) 600 mg PO BID [facility] Last Admin: 09/25/20 09:52 Dose: Not Given Documented by: Sodium Chloride (Normal Saline) 1,000 mls @ 1,000 mls/hr IV ASDIRECTED AMANDA Last Admin: 09/24/20 17:45 Dose: 1,000 mls/hr Documented by: Remdesivir 200 mg/ Sodium (Chloride) 288 mls @ 250 mls/hr IV ONETIME ONE Stop: 09/25/20 10:10 Last Admin: 09/25/20 11:52 Dose: 250 mls/hr Documented by: Iopamidol (Iopamidol 755 Mg/Ml 100 Ml Bottle) 100 ml IVPUSH ONETIME ONE Stop: 09/24/20 16:10 Last Admin: 09/24/20 17:17 Dose: 100 ml Documented by: Iopamidol (Iopamidol 755 Mg/Ml 100 Ml Bottle) 100 ml IVPUSH ONETIME ONE Stop: 09/25/20 10:01 Last Admin: 09/25/20 11:11 Dose: 100 ml Documented by: - Exam Quality Assessment: Supplemental Oxygen (start at 1-2 liters due to low Po2) General: Alert, Oriented HEENT: Pupils Equal, Pupils Reactive Neck: Supple, Trachea Midline Lungs: Normal Respiratory Effort, Wheezing Cardiovascular: Regular Rate, Regular Rhythm GI/Abdominal Exam: Normal Bowel Sounds, Soft, Non-Tender Extremities: Normal Inspection, Normal Range of Motion - Patient Data Lab Results Last 24 hrs: Laboratory Results - last 24 hr 09/24/20 09/24/20 09/24/20 Range/Units 11:14 16:18 17:56 WBC (4.0-10.0) x10^3/uL RBC (4.00-5.50) x10^6/uL Hgb (12.0-16.0) g/dL Hct (33.0-47.0) % MCV (78.0-93.0) fL MCH (26.0-32.0) pg MCHC (32.0-36.0) g/dL RDW Coeff of Emiliano (10.0-15.0) % Plt Count (130-400) x10^3/uL ABG pH (7.35-7.45) pH ABG pCO2 (35-48) mmHG ABG pO2 (83-108) mmHG ABG HCO3 (21-28) mmol/L ABG Total CO2 (22-29) mmol/L ABG O2 Content (94-98) % ABG Base Excess ((-2)-(+3)) mmol/L FiO2 Sodium (136-145) mmol/L Potassium (3.5-5.1) mmol/L Chloride (98-107) mmol/L Carbon Dioxide (21-32) mmol/L Anion Gap (5-15) mmol/L BUN (7-18) mg/dL Creatinine (0.55-1.02) mg/dL Est Cr Clr Drug Dosing mL/min Estimated GFR (MDRD) Glucose (70-99) mg/dL Calcium (8.5-10.1) mg/dL Total Bilirubin (0.2-1.0) mg/dL Direct Bilirubin (0.00-0.20) mg/dL Indirect Bilirubin AST (15-37) U/L ALT (14-59) U/L Alkaline Phosphatase (46-116) U/L Troponin I High Sens (<=51) ng/L Total Protein (6.4-8.2) g/dL Albumin (3.4-5.0) g/dL Globulin Albumin/Globulin Ratio TSH, Ultra Sensitive 1.473 (0.358-3.74) uIU/mL Urine Color Yellow (YELLOW) Urine Appearance Clear (CLEAR) Urine pH 7.0 (5.0-8.0) Ur Specific [place] 1.015 Urine Protein Negative (NEGATIVE) mg/dL Urine Glucose (UA) Negative (NEGATIVE) mg/dL Urine Ketones Negative (NEGATIVE) mg/dL Urine Occult Blood Negative (NEGATIVE) Urine Nitrite Negative (NEGATIVE) Urine Bilirubin Negative (NEGATIVE) Urine Urobilinogen 0.2 (0.2) EU/dL Ur Leukocyte Esterase Negative (NEGATIVE) SARS CoV-2 RNA Rapid DAWN Positive H (NEGATIVE) 09/25/20 09/25/20 09/25/20 Range/Units 06:58 06:58 06:58 WBC 4.7 (4.0-10.0) x10^3/uL RBC 3.99 L (4.00-5.50) x10^6/uL Hgb 11.7 L (12.0-16.0) g/dL Hct 35.8 (33.0-47.0) % MCV 89.7 (78.0-93.0) fL MCH 29.3 (26.0-32.0) pg MCHC 32.7 (32.0-36.0) g/dL RDW Coeff of Emiliano 14.8 (10.0-15.0) % Plt Count 146 (130-400) x10^3/uL ABG pH (7.35-7.45) pH ABG pCO2 (35-48) mmHG ABG pO2 (83-108) mmHG ABG HCO3 (21-28) mmol/L ABG Total CO2 (22-29) mmol/L ABG O2 Content (94-98) % ABG Base Excess ((-2)-(+3)) mmol/L FiO2 Sodium 141 (136-145) mmol/L Potassium 3.9 (3.5-5.1) mmol/L Chloride 107 (98-107) mmol/L Carbon Dioxide 28 (21-32) mmol/L Anion Gap 9.9 (5-15) mmol/L BUN 14 (7-18) mg/dL Creatinine 0.8 (0.55-1.02) mg/dL Est Cr Clr Drug Dosing 48.20 mL/min Estimated GFR (MDRD) > 60 Glucose 103 H (70-99) mg/dL Calcium 8.4 L (8.5-10.1) mg/dL Total Bilirubin 0.5 (0.2-1.0) mg/dL Direct Bilirubin 0.11 (0.00-0.20) mg/dL Indirect Bilirubin 0.39 AST 46 H (15-37) U/L ALT 35 (14-59) U/L Alkaline Phosphatase 64 (46-116) U/L Troponin I High Sens 11 (<=51) ng/L Total Protein 5.3 L (6.4-8.2) g/dL Albumin 2.6 L (3.4-5.0) g/dL Globulin 2.7 Albumin/Globulin Ratio 0.96 TSH, Ultra Sensitive (0.358-3.74) uIU/mL Urine Color (YELLOW) Urine Appearance (CLEAR) Urine pH (5.0-8.0) Ur Specific [place] Urine Protein (NEGATIVE) mg/dL Urine Glucose (UA) (NEGATIVE) mg/dL Urine Ketones (NEGATIVE) mg/dL Urine Occult Blood (NEGATIVE) Urine Nitrite (NEGATIVE) Urine Bilirubin (NEGATIVE) Urine Urobilinogen (0.2) EU/dL Ur Leukocyte Esterase (NEGATIVE) SARS CoV-2 RNA Rapid DAWN (NEGATIVE) 09/25/20 Range/Units 08:25 WBC (4.0-10.0) x10^3/uL RBC (4.00-5.50) x10^6/uL Hgb (12.0-16.0) g/dL Hct (33.0-47.0) % MCV (78.0-93.0) fL MCH (26.0-32.0) pg MCHC (32.0-36.0) g/dL RDW Coeff of Emiliano (10.0-15.0) % Plt Count (130-400) x10^3/uL ABG pH 7.44 (7.35-7.45) pH ABG pCO2 35 (35-48) mmHG ABG pO2 70 L (83-108) mmHG ABG HCO3 23 (21-28) mmol/L ABG Total CO2 24 (22-29) mmol/L ABG O2 Content 95 (94-98) % ABG Base Excess -1 ((-2)-(+3)) mmol/L FiO2 0.21 Sodium (136-145) mmol/L Potassium (3.5-5.1) mmol/L Chloride (98-107) mmol/L Carbon Dioxide (21-32) mmol/L Anion Gap (5-15) mmol/L BUN (7-18) mg/dL Creatinine (0.55-1.02) mg/dL Est Cr Clr Drug Dosing mL/min Estimated GFR (MDRD) Glucose (70-99) mg/dL Calcium (8.5-10.1) mg/dL Total Bilirubin (0.2-1.0) mg/dL Direct Bilirubin (0.00-0.20) mg/dL Indirect Bilirubin AST (15-37) U/L ALT (14-59) U/L Alkaline Phosphatase (46-116) U/L Troponin I High Sens (<=51) ng/L Total Protein (6.4-8.2) g/dL Albumin (3.4-5.0) g/dL Globulin Albumin/Globulin Ratio TSH, Ultra Sensitive (0.358-3.74) uIU/mL Urine Color (YELLOW) Urine Appearance (CLEAR) Urine pH (5.0-8.0) Ur Specific [place] Urine Protein (NEGATIVE) mg/dL Urine Glucose (UA) (NEGATIVE) mg/dL Urine Ketones (NEGATIVE) mg/dL Urine Occult Blood (NEGATIVE) Urine Nitrite (NEGATIVE) Urine Bilirubin (NEGATIVE) Urine Urobilinogen (0.2) EU/dL Ur Leukocyte Esterase (NEGATIVE) SARS CoV-2 RNA Rapid DAWN (NEGATIVE) Result Diagrams: 09/25/20 06:58 09/25/20 06:58 Imaging Impressions Last 24 hrs: CT Pe protocol, with small amount of right lower lobe emboli , discussed with radiologist. Sepsis Event Note - Evaluation Sepsis Screening Result: No Definite Risk - Focused Exam Vital Signs: Vital Signs Temp Temp Pulse Resp BP Pulse Ox 09/25/20 07:38 36.8 C 09/25/20 07:08 37.9 C 09/25/20 05:19 92 L 09/25/20 05:16 37.7 C 76 18 111/48 L 92 L 09/25/20 02:20 91 L - Problem List & Annotations (1) COVID-19 SNOMED Code(s): 917879194 Code(s): U07.1 - COVID-19 Status: Acute Current Visit: Yes Annotation/Comment:: with hypoxia, need to start remdesivir and decadron (2) Syncope SNOMED Code(s): 804325549 Code(s): R55 - SYNCOPE AND COLLAPSE Status: Acute Priority: Medium Current Visit: Yes Annotation/Comment:: improved, no new episodes (3) Hypoxia SNOMED Code(s): 754428216 Code(s): R09.02 - HYPOXEMIA Status: Acute Priority: High Current Visit: Yes Annotation/Comment:: blood gas with pO2 70. CT Pe protocol ordered, ablut aniyah inhaler and o2 1-2 lpm (4) Pulmonary emboli SNOMED Code(s): 51649879 Code(s): I26.99 - OTHER PULMONARY EMBOLISM WITHOUT ACUTE COR PULMONALE Status: Acute Priority: High Current Visit: Yes Qualifiers: Chronicity: acute Acute cor pulmonale presence: without acute cor pulmonale Annotation/Comment:: multiple in right lower. Will change lovenox from 40 mg daily to 80 mg daily - Problem List Review Problem List Initiated/Reviewed/Updated: Yes - My Orders Last 24 Hours: My Active Orders 09/24/20 16:09 Ang Neck [CT] Stat 09/24/20 16:19 Cardiac Monitoring [RC] 02,06,10,14,18,22 09/24/20 17:45 Isolation [COMM] Routine 09/24/20 18:12 Patient Status [ADT] Routine 09/24/20 19:35 Up With Assistance [RC] VTE/DVT Education [RC] .PRN Vital Signs [RC] ,, Acetaminophen [TylenoL] 650 mg PO Q4H PRN Ondansetron [Zofran ODT] 4 mg PO Q4H PRN Resuscitation Status Routine 09/24/20 19:36 Cardiac Monitoring [RC] 02,06,10,14,18, Pulse Oximetry [RC] 02,06,10,14,18,22 09/24/20 19:39 Isolation [COMM] Routine 09/24/20 20:00 Simvastatin [Zocor] 10 mg PO BEDTIME 09/25/20 07:00 Orthostatic Vital Signs [RC] .PRN 09/25/20 Breakfast Regular Diet [DIET] 09/25/20 07:58 Oxygen Therapy [RC] 09/25/20 07:59 Albuterol [Ventolin HFA] See Dose Instructions INH Q4H PRN 09/25/20 08:00 Enoxaparin [Lovenox] 40 mg SUBCUT DAILY 09/25/20 08:15 dexAMETHasone 6 MG 6 mg PO DAILY 09/25/20 10:00 Ang Chest [CT] Routine 09/25/20 20:00 Gabapentin [Neurontin] 600 mg PO BEDTIME 09/26/20 09:15 HEPATIC FUNCTION PANEL,HFP [CHEM] DAILY Remdesivir 100 mg Sodium Chloride 0.9% [Normal Saline] 100 ml IV Q24H 09/27/20 09:15 HEPATIC FUNCTION PANEL,HFP [CHEM] DAILY 09/28/20 09:15 HEPATIC FUNCTION PANEL,HFP [CHEM] DAILY 09/29/20 09:15 HEPATIC FUNCTION PANEL,HFP [CHEM] DAILY - Assessment Assessment:: needs admission for hypoxia due to covid 19 - Plan Plan:: decadron 6 mg po daily and remdesivir 200 mg IV today followed by 100 mg daily for 4 days. start lovenox 1 mg/kg Contact [facility] and [place] physician data consultant for admission.
[2020-09-25] MEDS ORDERED: Enoxaparin 40 MG/0.4 ML Syringe SUBCUT ONE ×2 (13:15→15:30)
--- NOTE | 2020-09-25 14:11 | PCM.SN.2 ---
- Free Text/Narrative Note: was notified at 1:00 pm today that pt was on observation with syncope and positive covid test from yesterday. Started having hypoxia with activity this am, so CT chest was done and was found to have RLL PE, so started on remdesivir and decadron, as well as lovenox. She will be placed an acute care and I will follow her. She is on room air at rest and needs oxygen w activity. Orthostatic Syncope has improved after IV fluids. Pt has already had Moderna vaccines on 03/13/20 and 04/10/20.
[2020-09-25 15:43] LABS: PTT,PARTIAL THROMBOPLSTIN TIME 27.4 SEC (25.6-32.8)
[2020-09-25] MEDS: Cholecalciferol (Vitamin D3) 25 MCG Tab PO SCH (19:07)
[2020-09-25] MEDS: Zinc Sulfate 220 MG Cap PO SCH (19:07)
[2020-09-25] MEDS: Ascorbic Acid 500 MG Tab PO SCH (20:15)
[2020-09-25] MEDS: Simvastatin 10 MG Tab PO SCH (20:16)
[2020-09-25] MEDS: Enoxaparin 80 MG/0.8 ML Syringe SUBCUT SCH (20:18)
[2020-09-25] MEDS ORDERED: Sodium Chloride 0.9% 10 ML Syringe FLUSH PRN (20:19)
[2020-09-26 07:14] LABS: ANION GAP 11.5 mmol/L (5-15); CHLORIDE,CL 107 mmol/L (98-107); SODIUM,NA 143 mmol/L (136-145)
--- NOTE | 2020-09-26 09:10 | PN ---
Progress Note for KYA HORNER Date: 09/26/2020 Room #: VM.210 SUBJECTIVE: The patient had been admitted to the hospital initially on observation on 09/24/2020 after having a syncopal spell, hit her head. Then returned with a repeat syncopal spell, was found to be positive for COVID, and so left on isolation. However, on 09/25/2020, she started to become more hypoxic and so a CT scan was done, which did show positive PE, so she was placed on acute care. Placed on remdesivir for 5 days IV as well as Decadron oral for 5 days. She was started on Lovenox, but dose was increased once PE was found. She needs oxygen when she sleeps. So yesterday further workup had been done for her in terms of metabolically to document where she was at. She was started on vitamin C as well as zinc and vitamin D3. Laboratory further workup yesterday showed that her pro time was 10.5, PTT 27.4. D-dimer was 2.84, just to document its value. Lactic acid 1.3. Magnesium 2.1. Ferritin 381. LDH 293. CK 1708 (which may have been from a fall). Troponin was trending normal at 7. CRP was 7.2. ProBNP 509. Procalcitonin less than 0.05. A sputum culture was ordered as well as blood cultures. The patient states that she actually had been up in [place] 2 weeks prior to getting ill visiting family. They had gone to [place]. [place] is known to have more COVID cases right now. The patient says she has been having a cough, but she has felt that that was for a long time and felt it was due to the smoky air and not concerning. She does complain of a neck pain after her fall, but has full range of motion of her neck, more of a stiffness, soreness in the muscles. She was wondering if she should have an MRI done of her head. Stated that when she first came in, she actually had a wonderful workup of having a CTA of her head as well as her neck and that all looked normal, and she has not shown any further neurological problems, and she was noted to have orthostatic changes when she stood up and so that was more likely that she was low on fluids as the cause for her fall and not from a neurological problem. The patient comments that she really wants to attend the family event on Thursday and wants to get out. Did explain to her about state health department restrictions when she is known to have active COVID and that she does need to be isolated a certain amount of time, and I cannot recall if it is 7 or 10 days, but that would not allow her to participate in her family functions. Objectively, her telemetry has been showing normal sinus rhythm to sinus bradycardia. No pauses or gaps. She has been on a Holter monitor, report is pending that was submitted to the clinic for 24 hours. OBJECTIVE: Vital Signs: Show her temperature is 36.6 with maximum temperature of 37.7 yesterday morning, pulse was 61, blood pressure is 150/68, respiratory rate 18, saturations are 98% on 2 L. She had dropped down to 87% with activity. Neck: Has full range of motion. She is nontender to palpation. Heart: Regular rate and rhythm. Lungs: Have diminished breath sounds on bases, but no crackles or wheezes appreciated. Extremities: Lower extremities, no edema. Neurologic: The patient seems to be a little bit vague with word-finding ability. LABORATORY DATA: Lab today shows her white blood cell count 3.8, hemoglobin 12.4, platelets 130 with segs 47.3, lymphs 37.3. ESR 0.3. Sedimentation rate is 17 today. Sodium 143, potassium 3.5, creatinine 0.6. GFR greater than 60. Glucose 82. Calcium 8.3; calcium 9.4, corrected. Magnesium 2.1. Total bilirubin 0.4, AST 46 which is the same as yesterday, ALT 42, alk phos 63. Lactic dehydrogenase improved to 271. CK improved to 1206. CRP improved to 6.6. Albumin 2.6. Calcitonin stayed normal at less than 0.05. IMPRESSION: 1. Syncopal spell, most likely orthostatic hypotension. 2. COVID-19 infection. 3. Pulmonary embolus. 4. Hypoxemia, more nocturnal. 5. Neck pain. 6. Sinus bradycardia. 7. Hypercholesterolemia. PLAN: We will allow the patient to get up without assistance to the bathroom since she has not exhibited any further syncopal spells. We will have her try heat or cold to her neck. Did inform her that she is asked to stay in isolation when she is released from the hospital, so would not be able to attend family function. We will find documentation exactly how many days she needs to be in isolation. She may possibly need oxygen at the time of discharge and right now we will limit exposure to physical therapy while she is in the hospital. I don't feel an MRI is warranted at this time for her syncopal work up. Will also switch her from lovenox to Eliquis today. Did have this reviewed by anticoagulation clinic at [place] yesterday. Will check a chest xray tomorrow. GM09/26/2020 08:25:51 MODL: 09/26/2020 09:03:36 /[id number] ADAN
[2020-09-26] MEDS: Ascorbic Acid 500 MG Tab PO SCH ×2 (09:18→20:08)
[2020-09-26] MEDS: Zinc Sulfate 220 MG Cap PO SCH (09:18)
[2020-09-26] MEDS: dexAMETHasone 2 MG, dexAMETHasone 4 MG PO SCH ×2 (09:19)
[2020-09-26] MEDS: Cholecalciferol (Vitamin D3) 25 MCG Tab PO SCH (09:19)
[2020-09-26] MEDS: Enoxaparin 80 MG/0.8 ML Syringe SUBCUT SCH (09:20)
[2020-09-26] MEDS: REMDESIVIR 100 MG in Sodium Chloride 0.9% 100 ML IV SCH (09:20)
[2020-09-26] MEDS: Apixaban 2.5 MG Tab PO SCH (20:07)
[2020-09-26] MEDS: Gabapentin 300 MG Cap PO SCH (20:07)
[2020-09-26] MEDS: Simvastatin 10 MG Tab PO SCH (20:08)
[2020-09-27 07:16] LABS: CHLORIDE,CL 106 mmol/L (98-107); SODIUM,NA 142 mmol/L (136-145)
[2020-09-27 07:17] LABS: ANION GAP 11.4 mmol/L (5-15)
[2020-09-27] MEDS ORDERED: Orphenadrine 100 MG Tab.ER PO PRN (08:20)
[2020-09-27] MEDS: REMDESIVIR 100 MG in Sodium Chloride 0.9% 100 ML IV SCH (08:33)
[2020-09-27] MEDS: Cholecalciferol (Vitamin D3) 25 MCG Tab PO SCH (08:34)
[2020-09-27] MEDS: Apixaban 2.5 MG Tab PO SCH ×2 (08:34→20:06)
[2020-09-27] MEDS: Ascorbic Acid 500 MG Tab PO SCH ×2 (08:34→20:05)
[2020-09-27] MEDS: dexAMETHasone 2 MG, dexAMETHasone 4 MG PO SCH ×2 (08:34)
[2020-09-27] MEDS: Zinc Sulfate 220 MG Cap PO SCH (08:34)
--- NOTE | 2020-09-27 08:56 | CR ---
[id number] RAD/RAD Chest PA or AP 1V EXAM: SINGLE VIEW CHEST. INDICATION: COVID HYPOXIA COMPARISON: CORRELATION IS MADE WITH SEPTEMBER 24, 2020 FINDINGS: The lungs are clear The cardiac mediastinal contour is stable IMPRESSION: NO PNEUMONIA Ross Elder MD 09/27/20 0820 Thank you for allowing us to participate in the care of your patient.
--- NOTE | 2020-09-27 11:40 | PN ---
Progress Note for KYA HORNER Date: 09/27/2020 Room #: VM.210 SUBJECTIVE: This is the patient's 4th hospital day after being admitted for syncopal spell with being found to be positive COVID. Yesterday went well for her. She still complains of neck pain. She has not had any further syncopal spells. She has been able to go to the bathroom by herself at home. The patient is fearful as to how sick she will become and whether she had been home alone. Stated that I think it was all due to her coming down with COVID at that time. She denies coughing. She does comment that she had been short of breath prior to getting COVID, especially with going upstairs. She may have been deconditioned. She had not been in the clinic for some time. The patient's appetite is okay. OBJECTIVE: Vital Signs: The patient's temperature is 36.2, pulse is 68, blood pressure is 131/70, her oxygen levels are 96% on 1 L. Heart: Regular rate and rhythm. Lungs: Clear to auscultation. Abdomen: Soft. Extremities: Lower extremities, no edema. Neck: The patient still does have stiffness in her neck. LABORATORY DATA: Lab work morillo, her blood cultures so far had no growth. Her white blood cell count is 4.4, hemoglobin 12.6, platelets 146. Sodium 142, potassium 3.4, creatinine is 0.7, GFR greater than 60. Her LFTs are now normal. Her LDH has stayed about the same at 293. CK greatly improved at 614, CRP improving at 4.3. IMPRESSION: 1. Syncopal spell. 2. Coronavirus disease. 3. Hypoxemia. 4. Neck pain. 5. PE RLL 6. Hypercholesterolemia. 7. Obesity. PLAN: We will add orphenadrine as a muscle relaxant. We will get Physical Therapy to work with strengthening as well as her neck pain. We will also start to try to document about her getting ready for discharge with consideration of home oxygen that she will need and also probably referral to home monitoring for COVID. We will review her chest x-ray that was done today and will repeat orthostatic blood pressures readings today as well too. GM09/27/2020 08:26:01 MODL: 09/27/2020 11:33:15 /[id number] ADAN
[2020-09-27] MEDS: Acetaminophen 325 MG Tab PO PRN (18:34)
[2020-09-27] MEDS: Gabapentin 300 MG Cap PO SCH (20:05)
[2020-09-27] MEDS: Simvastatin 10 MG Tab PO SCH (20:05)
[2020-09-28 07:20] LABS: ANION GAP 12.4 mmol/L (5-15); CHLORIDE,CL 106 mmol/L (98-107); SODIUM,NA 142 mmol/L (136-145)
[2020-09-28] MEDS ORDERED: Potassium Chloride 10 MEQ Tab.ER PO ONE (08:45)
[2020-09-28] MEDS: Ascorbic Acid 500 MG Tab PO SCH ×2 (09:04→19:48)
[2020-09-28] MEDS: REMDESIVIR 100 MG in Sodium Chloride 0.9% 100 ML IV SCH (09:04)
[2020-09-28] MEDS: Cholecalciferol (Vitamin D3) 25 MCG Tab PO SCH (09:05)
[2020-09-28] MEDS: Zinc Sulfate 220 MG Cap PO SCH (09:05)
[2020-09-28] MEDS: dexAMETHasone 2 MG, dexAMETHasone 4 MG PO SCH ×2 (09:05)
[2020-09-28] MEDS: Apixaban 2.5 MG Tab PO SCH ×2 (09:05→19:47)
--- NOTE | 2020-09-28 09:25 | PN ---
Progress Note for KYA HORNER Date: 09/28/2020 Room #: VM.210 HISTORY: This is the patient's 5th hospital day of COVID with PE and hypoxemia. She is getting better. She feels frustrated about being sick and feeling weaker and deconditioned. She is still having neck pain, but has only been using Tylenol. She is eager to use her home massager. Lung morillo, getting much better. The remdesivir actually will be stopped after today's dose. Her dexamethasone will be continued until tomorrow. She was seen by Physical Therapy yesterday, was walking and did not require oxygen. Also during the night, she did not desaturate this past night. The patient does not have assistance at home today and so we will plan on discharge home tomorrow. The patient was given reports of Holter monitor which showed some bradycardia down to 45, but no pauses of heart rate as well as some PVCs, but nothing concerning with tachycardia runs. Also, she was able to get set up for COVID home monitoring to [facility] and kit was given to the patient this morning, which she will take home to set up with her home computer. The patient says she does feel like she does have some forgetfulness. OBJECTIVE: Vital Signs: Her weight yesterday was 88.4, just up about a kilo from admission. Temperature is 37.1, pulse 64, blood pressure is 127/74, her respiratory rate is 12, and saturations are 95 on room air. General: She is alert, pleasant to visit with, appears frustrated at times. Heart: Regular rate and rhythm. Lungs: Clear to auscultation. Extremities: She moves around the room without assistance. LABORATORY DATA: Her lab today shows her white blood cell count is stable at 4.3, hemoglobin 12.6, and platelets 165. Potassium is stayed low at 3.4 from yesterday. Sodium is 124, creatinine 0.7, and GFR greater than 60. Magnesium is 2.1. Her LFTs are all back to normal. Her LDH has stayed at 280 with normal being 234 or less. Her CK is greatly improved to 269 from 600 yesterday. CRP is improved to 2.6. Chest x-ray was done yesterday which was normal. IMPRESSION: 1. Syncopal spell. 2. COVID infection. 3. Pulmonary embolism of right lower lobe. 4. Hypoxemia, improved. 5. Hypokalemia, mild. 6. Neck pain. PLAN: We will have her continue with Tylenol and heat or cool for her neck. She will receive remdesivir today and actually she can tomorrow since she is staying. She will be sent home tomorrow. We will make plans for her discharge medications for her Bon[place]is to be sent up to the pharmacy. She will see me back in the clinic in 2 weeks' time. She was told that it sometimes will take several weeks for her to regain her strength if not several months and that is typical with COVID. She is understanding of this. GM09/28/2020 08:43:41 MODL: 09/28/2020 09:20:42 /[id number] MTDD
[2020-09-28] MEDS ORDERED: Orphenadrine 100 MG Tab.ER PO PRN (14:37)
[2020-09-28] MEDS: Acetaminophen 325 MG Tab PO PRN (14:58)
[2020-09-28] MEDS: Gabapentin 300 MG Cap PO SCH (19:47)
[2020-09-28] MEDS: Simvastatin 10 MG Tab PO SCH (19:48)
[2020-09-29] MEDS: Apixaban 2.5 MG Tab PO SCH (07:35)
[2020-09-29] MEDS: dexAMETHasone 2 MG, dexAMETHasone 4 MG PO SCH ×2 (07:35)
[2020-09-29] MEDS: Ascorbic Acid 500 MG Tab PO SCH (07:35)
[2020-09-29] MEDS: Cholecalciferol (Vitamin D3) 25 MCG Tab PO SCH (07:35)
[2020-09-29] MEDS: Zinc Sulfate 220 MG Cap PO SCH (07:36)
[2020-09-29 08:47] LABS: CHLORIDE,CL 105 mmol/L (98-107); SODIUM,NA 142 mmol/L (136-145)
[2020-09-29] MEDS: REMDESIVIR 100 MG in Sodium Chloride 0.9% 100 ML IV SCH (08:51)
[2020-09-29 09:03] LABS: ANION GAP 9.7 mmol/L (5-15)
--- NOTE | 2020-09-29 09:29 | PN ---
Progress Note for KYA HORNER Date: 09/29/2020 Room #: VM.210 SUBJECTIVE: The patient is feeling better today. Her neck is better. It did improve after the muscle relaxant. She has not had any further syncopal episodes and does feel ready to go home. She is just worried that she might have another syncopal spell. She was given home monitoring COVID kit from [facility] yesterday but it will need to have family members assist her with setting this up. OBJECTIVE: Vital Signs: Her temperature is 36.6, her pulse is 63, blood pressure is 127/64. Her sats are 97 on room air and had been normal throughout the night. Heart: Regular rate and rhythm. Lungs: Clear to auscultation. Neck: Just a little tight to palpation, but no bruising is noted. LABORATORY DATA: Her lab work today is showing white blood cell count 3.9, hemoglobin is 13.5. Other inflammatory markers are still pending yet. IMPRESSION: 1. COVID pneumonia. 2. Syncopal episode. 3. Hypoxemia which has resolved. 4. Neck pain. 5. Hypokalemia, mild. 6. Pulmonary embolus. PLAN: The patient will be discharged today when family is available. We will send her home with a muscle relaxant as well as Eliquis. GM09/29/2020 08:54:59 MODL: 09/29/2020 09:19:50 /[id number]
--- NOTE | 2020-09-30 11:41 | DISCH ---
PRIMARY DIAGNOSES: 1. COVID pneumonia. 2. Acute right lower lobe pulmonary embolism. 3. Syncopal episode. 4. Hypoxemia related to pulmonary embolism and COVID. 5. Neck strain. 6. Nocturnal hypoxemia, transient. 7. Hypokalemia, mild. 8. Obesity. 9. Hypercholesterolemia. SUMMARY OF ADMIT HISTORY AND PHYSICAL: The patient is a 80-year-old female who had presented to the emergency room on 09/24/2020 after having had a syncopal spell after sitting having a perm done at her home kit and she stood up and she lost consciousness. This was witnessed by her daughter. They called 911. She presented to the emergency room, was given IV fluids, and workup at that time was "negative" so she was sent home. Then after getting home, she stood up again and became lightheaded. Family caught her. She did not fall to the floor and she presented back to the emergency room. At that time, her COVID test to place her to the hospital came back positive and she was initially placed on observation. Her initial workup showed that she did have orthostatic blood pressure changes. Her temperature was 36.9, respiratory rate 21, pulse 62, sats were 97% at rest. The patient's laboratory data showed her TSH was 1.41. LABORATORY DATA: Her other laboratory data on 09/24 at 1st presentation showed her hemoglobin was 12.5, white blood cell count 5.1, platelets are 155 with 69 segs, 3 bands, 13 lymphocytes, 12 monocytes. Sodium 141, potassium 4.3, creatinine 0.9, GFR greater than 60. Glucose 118, total bilirubin 0.5, AST 16, ALT 21, alkaline phosphatase 50. Troponin 5. Urinalysis had been normal. SUMMARY OF HOSPITAL COURSE: The patient was initially placed on observation. However, the morning of 09/25/2020, she started to become hypoxemic in the morning with her sats dropping down to 88%. Blood gases were obtained, which showed her pH 7.44, pCO2 35, pO2 of 70, bicarb 23, sats are 95 on room air. Her D-dimer came back positive at 2.85. She did undergo a CT scan angiogram of her lungs which did show right lower lobe PE. The patient was then placed on acute care at that time. Additional lab work was done for documenting COVID illness showed her magnesium 2.1, ferritin 381, lactic acid normal at 1.3. LDH was elevated at 293. CK was elevated at 1708 which may have also been from her fall. Repeat troponin came back normal. CRP was elevated at 7.2. ProBNP was elevated at 509. Procalcitonin was normal at less than 0.05. The patient was started on Lovenox for PE treatment. She was started on remdesivir 200 mg initially and then 100 mg daily days 2 through 5. She was also started on Decadron 6 mg orally daily. The patient was also started on vitamin D 25 mcg daily, zinc 220 mg daily, and vitamin C 1000 mg b.i.d. The patient did have significant discomfort in her neck. She had no further syncopal spells. She was not given further IV hydration to avoid over hydrating her lungs. Her daily labs of CK trended down and by 09/29/2020, it was down to 114, which was normal. Her sedimentation rate had been checked, it was 17. Her white blood cell count on the day of discharge was 3.9, hemoglobin 13.5. Potassium was up to 3.7 after having been 3.4. She had been given a 1 time dose of potassium pills. Her magnesium stayed stable at 2.1. Her AST had gone slightly high at 46, on 09/25/2020 it was 46, by 09/29/2020 it was down to 32. ALT stayed normal. Her CRP had improved from 7.2 on her 1st check down to 1.8. ProBNP had improved to 114 on 09/28/2020. The patient's procalcitonin had been checked the next morning on 09/26/2020 and it stayed normal at less than 0.05. The patient's oxygen demands decreased and she was able to walk without any desaturation and then oxygen levels on both the evening of 09/27/2020 as well as 09/28/2020 did not drop below 90% while sleeping and she was on room air. Her heart rhythm was monitored and it stayed stable. To note, she did have a Holter monitor that had been set up as an outpatient on 09/24/2020, and it came back showing normal sinus rhythm. She had some bradycardia in the 40s. No pauses, a few PVCs, but no concerning runs and so therefore a normal Holter monitor. The patient was set up for home COVID monitoring per [facility] as she does have MiChart available to her. However, she will have to have her family help to get set up with that management. To note, the patient was full code status while she was hospitalized. MEDICATIONS AT DISCHARGE: Flaxseed 340 g powder 3 teaspoons daily, calcium with vitamin D 1 pill daily, multivitamin 1 pill daily, simvastatin 10 mg 1 pill at bedtime. Her ibuprofen 600 mg was stopped discharge because of being on Eliquis. The patient is on gabapentin 600 mg 1 pill at bedtime, docusate sodium 100 mg 1 pill twice a day, fish oil 1000 mg daily, oxybutynin extended release 10 mg 1 pill daily full knees 1 spray twice a day as needed, Eliquis will be 10 mg b.i.d. for a total of 7 days, which would last until 10/03/20 then she will be on 5 mg b.i.d. for a total of 3 months, which would go until 12/27/2020 for her PE treatment. Orphenadrine 100 mg 1 pill twice a day as needed for muscle spasms, vitamin C 1000 mg 1 pill twice a day for at least 2 weeks, vitamin D 25 mcg 1 pill daily for 2 weeks, zinc 220 mg 1 pill daily for at least 2 weeks. PLAN: The patient is to follow up and see me in 2 weeks' time in the clinic. If going home she has further evidence of hypoxemia, she would need to get set up for home oxygen or she becomes lightheaded and dizzy again, she would need to be returned to the emergency room. Over 30 minutes of time was spent coordinating discharge for patient. The patient was not felt to need home health as she is having home COVID monitoring. GM09/29/2020 15:36:46 MODL: 09/29/2020 20:40:49 /[id number] ADAN
[2020-10-03] MEDS ORDERED: Apixaban 2.5 MG Tab PO SCH (20:00)
== END 2020-09-29 11:50 | disposition home or self-care (01) | DRG 177 ==
LOC: VM.ED 15:53 → VM.MS 18:12 → OBSVTOIN 09-25 14:07
PROVIDERS: ADMIT Family Medicine; ATTEND Family Medicine
PROC: XW033E5 Introduction of Remdesivir Anti-infective into Peripheral Vein, Percutaneous Approach, New Technology Group 5 (ICD-10-PCS; principal; 2020-09-25)
PROC: 8E0ZXY6 Isolation (ICD-10-PCS; 2020-09-25)
DX: U07.1 COVID-19 (principal); R55 Syncope and collapse; M54.2 Cervicalgia; I26.99 Other pulmonary embolism without acute cor pulmonale; J12.82 Pneumonia due to coronavirus disease 2019; I45.10 Unspecified right bundle-branch block; E87.6 Hypokalemia; E66.9 Obesity, unspecified; E78.00 Pure hypercholesterolemia, unspecified; S16.1XXA Strain of muscle, fascia and tendon at neck level, initial encounter; J30.9 Allergic rhinitis, unspecified; K59.09 Other constipation; K21.9 Gastro-esophageal reflux disease without esophagitis; E64.9 Sequelae of unspecified nutritional deficiency; K57.90 Diverticulosis of intestine, part unspecified, without perforation or abscess without bleeding; R09.02 Hypoxemia; Z20.822 Contact with and (suspected) exposure to COVID-19; G25.81 Restless legs syndrome; M81.0 Age-related osteoporosis without current pathological fracture; G47.00 Insomnia, unspecified; D64.9 Anemia, unspecified; Z90.710 Acquired absence of both cervix and uterus; Z79.899 Other long term (current) drug therapy; Z98.51 Tubal ligation status; Z68.34 Body mass index [BMI] 34.0-34.9, adult
CPT/HCPCS: 36415; 36600; 70450; 70496; 70498; 71045; 71275; 72125; 80048; 80053; 80076; 81003; 82550; 82728; 82803; 83605; 83615; 83735; 83880; 84145; 84443; 84484; 85025; 85027; 85379; 85610; 85652; 85730; 86140; 87040; 93005; 93010; 96365; 96372; 97162-GP; 99220; 99233; 99284; 99285-25; A9270-GY; G0378; J1650; J7030; J7050; J8540; Q9967; U0002

== ENCOUNTER 2022-03-07 07:30 | Day surgery (SDC) | payer MEDICARE, BC ==
[2022-03-07] MEDS ORDERED: fentaNYL 100 MCG/2 ML SDV ONE (08:40)
[2022-03-07] MEDS ORDERED: Propofol 200 MG/20 ML SDV ONE (08:40)
[2022-04-04] MEDS ORDERED: Lactated Ringers 1,000 ML IV SCH (07:00)
== END 2022-03-07 10:09 | disposition home or self-care (01) ==
LOC: VM.SDS 07:30
PROVIDERS: ATTEND Student in an Organized Health Care Education/Training Program
DX: R13.10 Dysphagia, unspecified (principal); K22.2 Esophageal obstruction; E66.9 Obesity, unspecified; R41.3 Other amnesia; Z90.710 Acquired absence of both cervix and uterus; Z87.19 Personal history of other diseases of the digestive system; Z79.899 Other long term (current) drug therapy; Z68.31 Body mass index [BMI] 31.0-31.9, adult; Z79.82 Long term (current) use of aspirin; Z98.890 Other specified postprocedural states
CPT/HCPCS: 00731; C1726; J2704; J3010; J7120

== ENCOUNTER 2022-10-02 16:59 | Emergency (ER) | payer MEDICARE, BC ==
[2022-10-02 17:36] LABS: BASOPHILS PERCENT AUTO 0.4 % (0.2-1.2); EOSINOPHILS ABSOLUTE AUTO 0.1 x10^3/uL (0.0-0.5); EOSINOPHILS PERCENT AUTO 2.7 % (0.0-4.0); HEMATOCRIT 37.8 % (33.0-47.0); HEMOGLOBIN 12.8 g/dL (12.0-16.0); LYMPHOCYTES ABSOLUTE AUTO 1.3 x10^3/uL (1.0-4.8); MEAN CORPUSCULAR HEMOGLOBIN 29.8 pg (26.0-32.0); MEAN CORPUSCULAR HGB CONC 33.9 g/dL (32.0-36.0); MEAN CORPUSCULAR VOLUME 87.9 fL (78.0-93.0); MONOCYTES ABSOLUTE AUTO 0.4 x10^3/uL (0.0-0.8); MONOCYTES PERCENT AUTO 6.8 % (2.0-11.0); NEUTROPHILS ABSOLUTE AUTO 3.3 x10^3/uL (1.8-7.7); NEUTROPHILS PERCENT AUTO 64.1 % (50.0-80.0); PLATELET COUNT,PLT 174 x10^3/uL (130-400); WHITE BLOOD CELL COUNT,WBC 5.2 x10^3/uL (4.0-10.0)
[2022-10-02 17:52] LABS: INR 0.9 (2.0-3.5); PROTHROMBIN TIME 9.9 SEC (9.5-12.2); PTT,PARTIAL THROMBOPLSTIN TIME 25.3 SEC (23.6-33.6)
[2022-10-02 17:57] LABS: A/G RATIO 1.07; ALANINE AMINOTRANSFERASE,ALT 24 U/L (14-59); ALBUMIN 3.1 g/dL (3.4-5.0); ALKALINE PHOSPHATASE 103 U/L (46-116); ANION GAP 8.8 mmol/L (5-15); ASPARTATE AMNIOTRANSFERASE,AST 15 U/L (15-37); BILIRUBIN TOTAL 0.4 mg/dL (0.2-1.0); BLOOD UREA NITROGEN,BUN 18 mg/dL (7-18); C-REACTIVE PROTEIN 0.12 mg/dL (<=0.30); CALCIUM 9.2 mg/dL (8.5-10.1); CARBON DIOXIDE,CO2 32 mmol/L (21-32); CHLORIDE,CL 105 mmol/L (98-107); CREATININE 0.7 mg/dL (0.55-1.02); ESTIMATED GFR 87 mL/min (>=60); GLUCOSE RANDOM 100 mg/dL (70-99); MAGNESIUM 2.1 mg/dL (1.8-2.4); POTASSIUM,K 3.8 mmol/L (3.5-5.1); SODIUM,NA 142 mmol/L (136-145)
[2022-10-02 18:42] LABS: APPEARANCE,URINE CLEAR (CLEAR); BILIRUBIN,URINE NEGATIVE (NEGATIVE); COLOR,URINE LIGHT YELLOW (YELLOW); GLUCOSE,URINE NEGATIVE (NEGATIVE); KETONES,URINE NEGATIVE (NEGATIVE); LEUKOCYTE ESTERASE,URINE NEGATIVE (NEGATIVE); NITRITE,URINE NEGATIVE (NEGATIVE); OCCULT BLOOD,URINE NEGATIVE (NEGATIVE); PROTEIN,URINE NEGATIVE (NEGATIVE); UROBILINOGEN,URINE 0.2 EU/dL (0.2)
== END 2022-10-02 19:15 | disposition home or self-care (01) ==
LOC: VM.ED 16:59
DX: S09.90XA Unspecified injury of head, initial encounter (principal); S16.1XXA Strain of muscle, fascia and tendon at neck level, initial encounter; E78.00 Pure hypercholesterolemia, unspecified; E66.9 Obesity, unspecified; Z68.31 Body mass index [BMI] 31.0-31.9, adult; Z79.899 Other long term (current) drug therapy; Z79.82 Long term (current) use of aspirin; Z86.16 Personal history of COVID-19; W18.30XA Fall on same level, unspecified, initial encounter
CPT/HCPCS: 36415; 70450; 71045; 72125; 80053; 81003; 83735; 84484; 85025; 85610; 85730; 86140; 93005; 93010; 99284

== ENCOUNTER 2023-12-21 09:30 | Emergency (ER) | payer MEDICARE, BC ==
[2023-12-21] MEDS ORDERED: Naloxone 0.4 MG/ML SDV IVPUSH PRN (11:01)
[2023-12-21] MEDS ORDERED: HYDROmorphone 0.5 MG/0.5 ML Syringe IVPUSH ONE (11:01)
[2023-12-21] MEDS: Dexamethasone 4 MG/ML SDV IM ONE (11:30)
[2023-12-21] MEDS: Orphenadrine 60 MG/2 ML Inj IM ONE (11:30)
== END 2023-12-21 13:00 | disposition home or self-care (01) ==
LOC: VM.ED 09:30
DX: S32.030A Wedge compression fracture of third lumbar vertebra, initial encounter for closed fracture (principal); E78.00 Pure hypercholesterolemia, unspecified; E66.9 Obesity, unspecified; Z68.31 Body mass index [BMI] 31.0-31.9, adult; Z86.16 Personal history of COVID-19; Z90.710 Acquired absence of both cervix and uterus; Z79.82 Long term (current) use of aspirin; Z79.899 Other long term (current) drug therapy; W19.XXXA Unspecified fall, initial encounter
CPT/HCPCS: 72100; 96372; 99283; 99284; J1100; J2360

== ENCOUNTER 2024-01-30 21:17 | Emergency (ER) | payer MEDICARE, BC ==
[2024-01-30] MEDS: Take Home: Nitrofurantoin Monohydrate/Macrocrystalline 100 MG, 6 Cap Pack PO ONE (22:09)
[2024-01-31 08:44] LABS: APPEARANCE,URINE CLOUDY (CLEAR); BILIRUBIN,URINE NEGATIVE (NEGATIVE); COLOR,URINE YELLOW (YELLOW); GLUCOSE,URINE NEGATIVE (NEGATIVE); KETONES,URINE NEGATIVE (NEGATIVE); LEUKOCYTE ESTERASE,URINE MODERATE (NEGATIVE); NITRITE,URINE NEGATIVE (NEGATIVE); OCCULT BLOOD,URINE MODERATE (NEGATIVE); PROTEIN,URINE 100 mg/dL (NEGATIVE); UROBILINOGEN,URINE 0.2 EU/dL (0.2)
[2024-01-31 09:21] LABS: BACTERIA,URINE FEW /HPF (NOT SEEN); MUCUS,URINE OCCASIONAL /LPF (NOT SEEN); RBC,URINE 40-50 /HPF (NOT SEEN); SQUAMOUS EPITHELIAL CELLS,UR OCCASIONAL /HPF (NOT SEEN); WBC,URINE SEMI-PACKED /HPF (NOT SEEN)
== END 2024-01-30 22:05 | disposition home or self-care (01) ==
LOC: VM.ED 21:17
DX: N39.0 Urinary tract infection, site not specified (principal); E78.00 Pure hypercholesterolemia, unspecified; E66.9 Obesity, unspecified; Z79.899 Other long term (current) drug therapy; Z86.16 Personal history of COVID-19; Z90.710 Acquired absence of both cervix and uterus; Z68.30 Body mass index [BMI] 30.0-30.9, adult
CPT/HCPCS: 81001; 87086; 87088; 87186; 99283; 99284; A9270-GY